=== PATIENT | female | born 1985 | race Caucasian/White ===

== ENCOUNTER 2019-02-09 16:10 | Outpatient (CLI) | payer BC ==
--- NOTE | 2019-02-09 16:46 | RAD ---
"PRELIMINARY REPORT" 3 views of the cervical spine: 02/09/2019 COMPARISON: None HISTORY: Injury, pain FINDINGS: No significant anterolisthesis or retrolisthesis noted on neutral lateral imaging. There is disc space narrowing and anterior osteophyte formation at C5-6 and to a lesser degree, C4-5. On the flexion imaging there is minimal anterolisthesis at C2-3 and C3-4 measuring in the 2 mm range. No significant anterolisthesis or retrolisthesis noted with extension imaging. No prevertebral soft tissue swelling. IMPRESSION: Cervical spine degenerative change as detailed above. Transcribed Date/Time: 02/09/2019 5:33 PM
== END 2019-02-09 16:11 | disposition home or self-care (01) ==
LOC: TBSIIMAG 16:10
PROVIDERS: ATTEND Neurological Surgery
DX: M54.2 Cervicalgia (principal); M47.812 Spondylosis without myelopathy or radiculopathy, cervical region
CPT/HCPCS: 72040